=== PATIENT | male | born 1990 | race African-American/Black ===

== ENCOUNTER 2018-01-24 11:28 | Emergency (ER) | payer OTHER | END 2018-01-24 12:04 | disposition left against medical advice (07) | LOC: ER 11:28 | DX: S60.112A Contusion of left thumb with damage to nail, initial encounter (principal); J45.909 Unspecified asthma, uncomplicated; X58.XXXA Exposure to other specified factors, initial encounter; Y93.89 Activity, other specified; Y92.89 Other specified places as the place of occurrence of the external cause; Y99.8 Other external cause status ==